=== PATIENT | female | born 1955 | race Caucasian/White ===

== ENCOUNTER 2021-12-14 10:30 | Outpatient (CLI) | payer MEDICARE, MEDICAID, SELFPAY ==
--- NOTE | ~2021-12-14 | XR_ITS ---
XR thoracic spine 2V DATE: 12/14/2021 11:08 INDICATION: Back pain TECHNIQUE: AP, lateral, swimmer views COMPARISON: None FINDINGS: Degenerative change of the cervical spinal including severe degenerative disc disease and u ncovertebral joint spurring at C5-6 and C6-7. Osteopenia. Chronic moderately prominent anterior wedge compression fracture deformity of T12. There is mild degenerative spurring of the thoracic spine. No recent fracture or dislocation or bone destruction. The thoracic pedicles are intact. No paraspina l soft tissue thickening. IMPRESSION: Chronic moderate anterior wedge compression fracture deformity of T12 Mild degenerative spurring of the thoracic spine Prominent cervical spondylosis Reviewed, dictated and finalized at location B. IMPRESSION: Chronic moderate anterior wedge compression fracture deformity of T 12 Mild degenerative spurring of the thoracic spine Prominent cervical spondylosis
--- NOTE | ~2021-12-14 | XR_ITS ---
XR lumbar spine 2-3V DATE: 12/14/2021 11:08 INDICATION: Low back pain TECHNIQUE: AP, lateral, coned lateral lumbosacral views COMPARISON: None FINDINGS: Osteopenia. Minimal levoscoliosis of the lumbar spine. Moderately prominent anterior wedge compression fracture T12 and L2. There is degenerative spurring at the lumbar interspaces. There is moderate loss of interspace height at L3-4 interspace height is relatively preserved elsewhere in the lumbar and lumbosacral area. No spondylolisthesis. No bone destruction is evident. The included lower thoracic and lumbar pedicles are intact. The sacroiliac joints are normally aligned. Surgical clips and bowel sutures overlie the abdomen. IMPRESSION: Osteopenia Minimal levoscoliosis Multilevel degenerative Moderately prominent anterior wedge compression fracture deformity of T12 and L2 disc disease, greate st at L3-4 Reviewed, dictated and finalized at location B. IMPRESSION: Osteopenia Minimal levoscoliosis Multilevel degenerative Moderately prominent anterior wedge compression fracture deformity of T12 and L 2 disc disease, greatest at L3-4
== END 2021-12-14 10:31 | disposition home or self-care (01) ==
PROVIDERS: PCP Family Medicine; Visit Provider Neurological Surgery
DX: S32.000A Wedge compression fracture of unspecified lumbar vertebra, initial encounter for closed fracture (principal); X58.XXXA Exposure to other specified factors, initial encounter; M85.88 Other specified disorders of bone density and structure, other site; M51.36 Other intervertebral disc degeneration, lumbar region; M47.892 Other spondylosis, cervical region
CPT/HCPCS: 72070; 72100

== ENCOUNTER 2022-02-08 07:07 | Outpatient (CLI) | payer MEDICARE, MEDICAID, SELFPAY ==
--- NOTE | ~2022-02-08 | XR_ITS ---
XR thoracic spine 2V DATE: 02/08/2022 07:44 INDICATION: Wedge compression fractures TECHNIQUE: AP, lateral, swimmer views COMPARISON: 12/14/2021 thoracic spine FINDINGS: Stable moderate anterior wedge compression fracture deformity of T12 since 12/14/2021. No in terval fracture or any bone destruction is evident. The thoracic pedicles are intact. Prominent degenerative changes of the included lower cervical spine. Mild degenerative spurring of th e thoracic spine. Osteopenia. IMPRESSION: Chronic T12 fracture Osteopenia Prominent cysts degenerative changes of the lower cervical spine, mild degenerative spurring of thora cic spine Reviewed, dictated and finalized at location B. ENT MANAGEMENT SPECIALIST IMPRESSION: Chronic T12 fracture Osteopenia Prominent cysts degenerative changes of the lower cervical spine, mild degenera tive spurring of thoracic spine
--- NOTE | ~2022-02-08 | XR_ITS ---
EXAMINATION: XR lumbar spine 2-3V DATE: 02/08/2022 07:44 INDICATION: Low back pain, unspecified. TECHNIQUE: 2 views of lumbar spine were obtained. COMPARISON: Lumbar spine radiographs 01/13/2022 FINDINGS: There is 11 degrees levoscoliosis of lumbar spine. There are chronic compression fractures of T12 and L1. There is a chronic burst fracture of L2 with 2/5 loss of height and retropulsion of cyndee ne 4 mm into central spinal canal. There is moderately decreased disc height at L3-L4 and mildly decr eased disc height at L4-L5 and L5-S1. There is multilevel facet joint osteoarthritis, severe in lower lumbar spine. There are surgical changes in the bowel. IMPRESSION: 1. Moderate lumbar spondylosis. 2. Lumbar levoscoliosis. Reviewed, dictated and finalized at location A. MOBILE MECHANIC RADIATOR
== END 2022-02-08 07:08 | disposition home or self-care (01) ==
PROVIDERS: PCP Family Medicine; Visit Provider Neurological Surgery
DX: M47.896 Other spondylosis, lumbar region (principal); M85.88 Other specified disorders of bone density and structure, other site; S22.089D Unspecified fracture of T11-T12 vertebra, subsequent encounter for fracture with routine healing; X58.XXXD Exposure to other specified factors, subsequent encounter
CPT/HCPCS: 72070; 72100

== ENCOUNTER 2022-03-29 07:31 | Outpatient (CLI) | payer MEDICARE, MEDICAID, SELFPAY ==
--- NOTE | ~2022-03-29 | XR_ITS ---
Thoracic spine: Clinical Indication: T12 fracture COMPARISON: 02/08/2022 AP and lateral views were performed. Moderate compression fracture of T12 is unchanged from prior exam. Probable mild to moderate compress ion fracture of L1, also likely unchanged. There is otherwise normal alignment of the vertebrae. The intervertebral disc spaces appear normal. Paravertebral soft tissues appear normal. Impression: Stable compression fractures of T12 and probably L1. Reviewed, dictated and finalized at location M. ING MACHINE COLLECTOR Impression: Stable compression fractures of T12 and probably L1.
--- NOTE | ~2022-03-29 | XR_ITS ---
Lumbosacral Spine: AP and lateral views Clinical History: Pain COMPARISON: 02/08/2022 Findings: Stable mild levoscoliosis noted. Stable compression fractures of T12 and L2 are present. St able probable minimal compression fracture of L1. Mild facet joint degenerative changes are present i n the lower lumbar spine. The intervertebral disc spaces are preserved. The sacroiliac joints are no rmally outlined. Impression: Stable compression fracture deformities of T12, L1, and L2. Reviewed, dictated and finalized at location M. CITY MANAGEMENT SPECIALIST Impression: Stable compression fracture deformities of T12, L1, and L2.
== END 2022-03-29 07:32 | disposition home or self-care (01) ==
PROVIDERS: PCP Family Medicine; Visit Provider Neurological Surgery
DX: S22.080D Wedge compression fracture of T11-T12 vertebra, subsequent encounter for fracture with routine healing (principal); X58.XXXD Exposure to other specified factors, subsequent encounter
CPT/HCPCS: 72070; 72100

== ENCOUNTER 2023-03-13 09:30 | Outpatient (RCR) | payer MEDICARE, MEDICAID, SELFPAY ==
--- NOTE | 2023-01-17 17:27 | PTOPEVAL1 ---
Assessment and note entered by Mirna Khanna, PT Evaluation Information Assessment Status Evaluation Diagnosis (R) hip instability, (L) hip instability, Weakness Therapy conditions other deficits in gait and mobility Onset ~1 year Subjective Information Has fallen 5 times this year but hasn't fallen in a few months. [place]ses the [place] at the [facility] to walk for fitness without chance of falling. Does have some back pain since her fractures. Doesn't keep her from doing things, will bother once in a while with doing a lot of work. Will only have pain in left hip when walks the [employer] for an hour Assessment PT Clinical Summary Pt presents with L/R hip instability and weakness, complains of increased fall frequency this past year. Pt evaluation shows significant postural deficits, BLE weakness, gait abnormality, balance and coordination deficits. Pt will greatly benefit from physical therapy to address deficits and improve safety with independent mobility and function. Plan of Care Interventions Gait Training,Neuro Re-education,Patient/Caregiver Educati,Therapeutic Activities,Therapeutic Exercise,Self-Care/Home Management PT Services Indicated Yes Treatment Frequency and 1-2 x weekly x 8 weeks Duration These treatments will address the objective and functional deficits as defined above. The patient will be advanced safely and appropriately in order for the patient to progress towards his/her prior level of function. Additional exercises will be introduced and as well as a comprehensive home exercise program upon discharge, if needed, ?to ensure carryover of functional gains achieved in the clinic. This treatment plan has been reviewed and agreement upon by the patient.
--- NOTE | 2023-03-11 08:33 | PCPTNOTE ---
Therapy department called patient 03/08/23 and cancelled scheduled appointment this date due to staffing shortage.
--- NOTE | 2023-03-13 10:22 | PTOPDC ---
Assessment and note entered by Mirna Khanna, PT Assessment Status Discharge Diagnosis (R) hip instability, (L) hip instability, Weakness Onset ~1 year Subjective Information Feels that balance and walking is better. States her sister thinks she has improved some. Reported Pain Level Pain Score 0: Self Report Assessment PT Clinical Summary Pt has attended therapy consistently for weakness, balance, mobility and gait deficits. Her balance and dynamic gait scores have greatly increased showing patient is at low risk for falls currently . Her strength in her LEs has also increased in multiple aspects. Pt has met majority of her therapy goals, understands her home program, and was educated when to return to therapy. Thus patient is being discharged from therapy for completion of plan.
== END 2023-03-13 10:38 | disposition home or self-care (01) ==
LOC: ANHHIPT 09:30
PROVIDERS: PCP Family Medicine; Visit Provider Family Medicine
DX: M25.351 Other instability, right hip (principal); M25.352 Other instability, left hip; R53.1 Weakness
CPT/HCPCS: 97110; 97112; 97116; 97162; 97750

== ENCOUNTER 2024-04-23 08:45 | Outpatient (RCR) | payer MEDICARE, MEDICAID, SELFPAY ==
--- NOTE | 2024-01-27 11:56 | PTOPEVAL1 ---
Assessment and note entered by Mirna Khanna, PT Evaluation Information Assessment Status Evaluation Diagnosis unsteadiness on feet, repeated falls, low back pain, abnormal posture ICD-10 Condition Codes (PT) Repeated falls R29.6,Difficulty Walking R26.2,R26. 9,Weakness R53.1 Onset chronic Subjective Information Has fallen a few times since was last in therapy. States she fell when she was walking outside to her mailbox and hit her face. she has a new rollator walker. Sitting to long or standing to loon back will bother her. Reports can stand up to 30-45 minutes. Sometimes can stand a little longer. Can't really cook meals because of her back. Pt's sister states pt's Alzheimers is effecting her sense of time. States patient can only stand for 10 minutes. Sister states she talks to patient multiple times a day and that patient can't stand longer than 10 min. Reports they had been wearing her back brace for 2 weeks, and just this weekend took it off. Sister reports is a full brace that is hard plastic goes up to the shoulders and has straps on sides to tighten it. Reports is thinks is hard on the sides as well. Pt does want the helper to observe therapy sessions to be able to reinforce therapy habits when is outside of therapy due to poor carry over. Neuro Surgeon stated pt is not allowed to bend more than necessary, or lift more than a gallon of milk. Reported Pain Level Pain Score 0: Self Report Assessment PT Clinical Summary Pt presents with history of falls, low back pain, abnormal posture. She has multiple co-morbidities and difficulty with attention and focusing at times, difficulty with multitasking, coordination, and problem solving effecting her balance with ambulation. She also shows abnormal sitting and standing postures, weakness in the postural and lumbopelvic core musculature, and decreased stability overall. Pt will greatly benefit from therapy to address these deficits, educate and reinforce safety and use of rollator, provide caregiver with education and resources to help reinforce therapy instruction and goals, to maximize functional safety for patient in and out of home. Plan of Care Interventions Gait Training,Hot Pack/Cold Pack,Manual Therapy, Neuro Re-education,Patient/Caregiver Educati, Therapeutic Activities,Therapeutic Exercise,Self- Care/Home Management,Other Other Interventions Bracing PT Services Indicated Yes Treatment Frequency and 1-2x weekly x 20 visits Duration These treatments will address the objective and functional deficits as defined above. The patient will be advanced safely and appropriately in order for the patient to progress towards his/her prior level of function. Additional exercises will be introduced and as well as a comprehensive home exercise program upon discharge, if needed, ?to ensure carryover of functional gains achieved in the clinic. This treatment plan has been reviewed and agreement upon by the patient.
--- NOTE | 2024-01-27 11:56 | OPREHPOC ---
Outpatient Therapy Plan of Care This is a Multidisciplinary Plan of Care that may contain components documented by all disciplines (PT, OT, and ST.) PT Goal 1 Goal / Goal Update Pt will able to participate in HEP with stand by assist Target Visit 10 PT Problem 2 PT Problem #2 Pain PT Goal 1 Goal / Goal Update Pt/POA/caregiver will report ability for patient to stand approx 20 minutes with cueing or reminders for posture, before having to sit from back pain Target Visit 10 PT Goal 2 Goal / Goal Update Pt/caregiver/POA will report ability for pt to ambulate 30 minutes with rollator prior to sitting from back pain. Target Visit 20 PT Problem 3 PT Problem #3 Impaired Balance PT Goal 1 Goal / Goal Update Pt will demo 5x sit to stand test of 15 seconds without LOB or use of UEs Target Visit 10 PT Goal 2 Goal / Goal Update Pt will demo ability to stand with feet together on firm surface and eyes closed without LOCOMOTIVE MECHANIC x 20 seconds Target Visit 2
--- NOTE | 2024-03-05 17:44 | PTOPPROG ---
Assessment and note entered by Mirna Khanna, PT Evaluation Information Assessment Status Progress Diagnosis unsteadiness on feet, repeated falls, low back pain, abnormal posture ICD-10 Condition Codes (PT) Repeated falls R29.6,Difficulty Walking R26.2, Abnormalities of gait and mobility R26.9,Weakness R53.1 Onset chronic Subjective Information Pt states her toes are really hurting this morning , with the arthritis. States she is doing ok since last session, that she didn't fall any. Pt states she thinks she is getting steadier on her feet. Pt states back isn't doing too bad . Reports was a little sore later after therapy. Pt states so far she thinks she is doing better with her sitting posture, sits on the other side of the couch and does laying down stretches for her back that her niece who is a therapist gave her. Caregiver states hasn't heard pt complain about having pain with standing as much as before. Reports patient may stand 15 minutes for her phone conversations with her sister Assessment PT Clinical Summary Pt has attended therapy consistently for her balance, gait, and strengthening. Pt states she feels she is some improved. Pt's sister states she doesn't think her pain has improved. Pt does demonstrate improved strength overall, demonstrates improved 5x sit to stand time and quality, her walking is slower today but appears to be self-limiting in speed as she has been encouraged to slow down her activities and reactions previously. Pt is able to correct her postures with less cueing as well in static positions. Pt has met and partially met multiple goals though has not met all goals. Thus patient will benefit from continued therapy in order to continue progression and reach maximal functional and safe independence. Plan of Care Interventions Gait Training,Hot Pack/Cold Pack,Manual Therapy, Neuro Re-education,Patient/Caregiver Education, Therapeutic Activities,Therapeutic Exercise,Self- Care/Home Management,Other Other Interventions Bracing PT Services Indicated Yes Treatment Frequency and Cont 1-2x weekly x 10 visits Duration These treatments will address the objective and functional deficits as defined above. The patient will be advanced safely and appropriately in order for the patient to progress towards his/her prior level of function. Additional exercises will be introduced and as well as a comprehensive home exercise program upon discharge, if needed, ?to ensure carryover of functional gains achieved in the clinic. This treatment plan has been reviewed and agreement upon by the patient.
--- NOTE | 2024-03-31 11:28 | PCPTNOTE ---
Patient called & cancelled scheduled appointment this date due to her helper couldn't get to her because of the weather. Thus she didn't have a ride to therapy
--- NOTE | 2024-04-23 09:33 | PTOPDC ---
Assessment and note entered by Mirna Khanna, PT Evaluation Information Assessment Status Discharge Diagnosis unsteadiness on feet, repeated falls, low back pain, abnormal posture ICD-10 Condition Codes (PT) Repeated falls R29.6,Difficulty Walking R26.2, Abnormalities of gait and mobility R26.9,Weakness R53.1 Onset chronic Subjective Information Pt reports feeling some better graphic arts technician states patient is doing better about thinking about her actions, is doing better about planning her actions. Has changed some things at home to decreased fall risk Reported Pain Level Pain Score 0: Self Report Assessment PT Clinical Summary Pt has attended therapy consistently for her balance and ambulation. Her balance scores have increased, her strength has increased overall, her posture is improved especially with verbal cueing . She does very well with her rollator and has demonstrated appropriate safety and use without verbal cueing at least 75% of the time with increased processing time. She has met or partially met all goals with the exception of standing and walking time related to her back pain . Thus she is being discharged from physical therapy for completion of plan of care. Plan of Care PT Services Indicated No
== END 2024-04-23 09:49 | disposition home or self-care (01) ==
LOC: ANHHIPT 08:45
PROVIDERS: PCP Nurse Practitioner Family; Visit Provider Nurse Practitioner Family
DX: R26.81 Unsteadiness on feet (principal); R29.6 Repeated falls; M54.50 Low back pain, unspecified; R29.3 Abnormal posture
CPT/HCPCS: 97110; 97112; 97116; 97162; 97530; 97750

== ENCOUNTER 2024-08-22 08:41 | Outpatient (CLI) | payer MEDICARE, MEDICAID, SELFPAY ==
--- NOTE | ~2024-08-22 | MR_ITS ---
MRI of the brain Clinical History: Multiple sclerosis Technique: Axial and sagittal T1-weighted images were acquired. These were followed by axial T2-weigh sonia, diffusion weighted, gradient, and FLAIR images. Following intravenous administration of 13 cc Pr oHance gadolinium, T1-weighted fat-sat imaging was performed in the axial, coronal, and sagittal plan es. Findings: No acute infarct, acute intracranial hemorrhage, or mass lesion identified. There are multi ple focal areas of low signal on gradient images, probably about the atria and temporal horns lateral ventricles and the region of the cerebellar vermis. There are minimal chronic white matter changes in the periventricular white matter bilaterally. Ventr icles and subarachnoid spaces are unremarkable. Orbits are unremarkable. Paranasal sinuses and mastoi d air cells are clear. Major intracranial flow voids appear intact. Sagittal midline structures are grossly intact. No abnormal postcontrast enhancement identified. IMPRESSION: Probable chronic postoperative changes in the region of the cerebellar vermis, which correlates with reported history of prior benign brain tumor. No definite evidence for multiple sclerosis. Minimal probable chronic microvascular ischemic changes in the periventricular white matter. No definite acute abnormality seen. Reviewed, dictated and finalized at [facility]. IMPRESSION: Probable chronic postoperative changes in the region of the cerebellar vermis, which correlates with reported history of prior benign brain tumor. No definite evidence for multiple sclerosis. Minimal probable chronic microvasc ular ischemic changes in the periventricular white matter. No definite acute abnormality seen.
--- OUTSIDE RECORDS SUMMARY | 2024-08-22 08:38 | XMS_ITS | Clinical Summary ---
Author Organization [facility] Address [address] [place] [address] Care Team Providers Care Sales Representative Livestock Name Role Phone Alex Leon MD Primary Care Provider [phone] Source Comments [facility],non-owned Affiliates and Associated Physician Practices is amultiple site organization consisting of ambulatory clinics and hospital sitesin [place], [place], [place] and [place]. This disclosure is being madepursuant to the Care Everywhere program and may not contain all information available regarding this patient. Last updated 17.[facility] Allergies No known active allergies Medications * Be aware that medications may not be up to date on this document. Alwaysverify current medications with the patient. alendronate (FOSAMAX) 70 MG tablet 9 Active benztropine (COGENTIN) 1 MG tablet 0 Active [facility] CALCIUM 600 MG tablet Take 1 tablet by mouth once daily 0 Active haloperidol decanoate (HALDOL DECANOATE) 100 MG/ML injection INJECT 1ML MONTHLY 0 Active ketoconazole (NIZORAL) 2 % shampoo USE TOPICALLY 2 3X PER WEEK 0 Active NAMZARIC 28-10 MG capsule Take 1 capsule by mouth every evening 0 Active OLANZapine (ZYPREXA) 20 MG tablet Take 20 mg by mouth once daily 0 Active oxyCODONE, immediate release, (ROXICODONE) 5 MG tablet 0 Active pantoprazole EC (PROTONIX) 40 MG tablet Take 40 mg by mouth every morning 0 Active rosuvastatin (CRESTOR) 5 MG tablet Take 5 mg by mouth once daily 0 Active traZODone (DESYREL) 50 MG tablet 9 Active Cholecalciferol (CVS VITAMIN D3 PO) 2,000 Units 0 Active influenza quadrivalent vac (AFLURIA QUAD) 0.5 ML injection ADM 0.5ML IM UTD 8 Active amoxicillin (AMOXIL) 500 MG capsule TAKE 1 CAPSULE EVERY 8 HOURS UNTIL FINISHED 0 Active [facility]S D3 50 MCG (1999 UT) capsule Take 1 capsule by mouth once daily 0 Active GAVILYTE-N WITH FLAVOR PACK 420 g solution TAKE 4000 MLS BY MOUTH ONCE FOR 1 DOSE 0 Active polyethylene glycol (GOLYTELY;NULYTEL Y) 240 g solution Use as directed 0 Active polyethylene glycol (GOLYTELY) 236 g solution 4 liters to be taken by mouth as directed for bowel prep. 0 Active GAVILYTE-G 236 g solution USE DIRECTED PER DIRECTIONS 0 Active Active Problems Problem Noted Date Diagnosed Date Edema of both lower legs due to peripheral venous insufficiency 01/08/2018 Onychomycosis of toenail 01/03/2018 Encounter for preventive health examination 06/2017 Immunizations Immunization Administration Dates Next Due INFLUENZA VACCINE, HIGH-DOSE , QUADR. (FLUZONE HIGH-DOSE QUADRIVALENT; 65Y+), 0.7 ML (HD-IIV4) 11/25/2018 Zoster Hzv Vacc Recombinant Inj Im 04/08/2019, Social History Tobacco Use Types Packs/Day Years Used Date Smoking Tobacco: Never Smokeless Tobacco: Never Comments Unknown Sex and Gender Information Value Date Recorded Sex Assigned at Not on file Legal Sex Female 9:30 AM CDT Gender Identity Not on file Sexual Orientation Not on file Last Filed Vital Signs Vital Sign Reading Time Taken Comments Blood Pressure - - Pulse - - Temperature - - Respiratory Rate - - Oxygen Saturation - - Inhaled Oxygen Concentration - - Weight 66.2 kg (146 lb) 08/20/2019 11:16 AM CDT Height 160 cm (5' 3) 08/20/2019 11:16 AM CDT Body Mass Index 25.86 08/20/2019 11:16 AM CDT Plan of Treatment Health Maintenance Due Date Last Done Comments BONE DENSITY TESTING 1955 COLOGUARD (AGES 45-75) - COL ON CA SCREENING 1955 COLON MONITORING 1953 COLONOSCOPY - COLON CA SCREENING 1953 CT COLONOGRAPHY - COLON CA SCREENING 1955 Colorectal Cancer Screening 1955 FIT - COLON CA SCREENING 1953 FLEX SIG - COLON CA SCREENING 1955 MAMMOGRAM 1953 HEPATITIS C SCREENING 06/07/1971 DTAP/TDAP/TD VACCINES (1 - Tdap) 1972 PNEUMOCOCCAL VACCINE 50+ (1 of 1 - PCV) 06/12/2003 SCREENING FOR DIABETES 08/20/2019 COVID-19 VACCINE ( - 2023-2 5 season) 2023 DEPRESSION SCREENING 03/25/2024 INFLUENZA VACCINE (Season Ended) 2024 11/25/2018 Respiratory Syncytial Virus (RSV) Vaccine Pt: or over 60 yrs (1 - 1-dose 75+ series) 2028 ZOSTER VACCINE Completed 04/08/2019, 02/06/2019 HEPATITIS B VACCINE Aged Out No longe r eligible based on patient's age to complete this topic HIB VACCINE Aged Out No longer eligi ble based on patient's age to complete this topic HPV VACCINE Aged Out No longer eligi ble based on patient's age to complete this topic MENINGOCOCCAL (Group B) VACCINE SHARED DECISION-MAKING Aged Out No longer eligible based on patient's age to complete this topic MENINGOCOCCAL GROUPS A/C/Y/W VACCINE Aged Out No longer eligible b ased on patient's age to complete this topic Insurance MEDICARE MEDICAID - OUT OF STATE MEDICARE MEDICAID - [place] Care Teams Sales Representative Livestock Relationship Specialty Start Date End Date Alex Leon MD [address] [place] [address] [address] [place] [address] PCP - General 08/13/19
--- OUTSIDE RECORDS SUMMARY | 2024-08-22 08:38 | XMS_ITS | Data Portability ---
Author Organization [place] - [facility], [id number] [facility] Address [address] [place] [address] Assessment No assessment recorded. Plan of Treatment Reminders Order Date Submit Date Provider Last Modified By Organization Details Last Modified Time Details Appointments ANNUAL- EST 15 2025 11:15A M CARMEN MARTE MD Not available Not available Not available Lab None recorded. Referral None recorded. Procedures None recorded. Surgeries None recorded. Imaging MAMMO, screening , digital, bilateral [address] [place] [address] (Central Scheduling), [address] [place], [address], 07/03/2024 09:35:30 Medication Orders None recorded. Patient TargetsNo targets recorded. Patient InstructionsNo instructions recorded. Reason for Referral None Reported. Problems Name Problem SNOMED Code Status Onset Date Resolution Date Notes Provider Name and Address Organization Details Recorded Time Arthritis 7143064 Active 2024 Crystal Christopher null, [place] - [facility] 5 11:55:47 Malignant tumor of colon 867953498 Active 2024 Crystal [place] [facility] 5 11:55:54 Schizophren ia 31481767 Active 2024 Crystal [place] [facility] 5 11:56:00 Osteoporosi s 36801594 Active 2024 Crystal [place] [facility] 5 11:56:08 Paranoid disorder 206165773 Active 2024 Jessika White [place] [facility] 5 11:56:20 Alzheimer's disease 86050282 Active 2024 Jess[place] [facility] 5 11:56:26 Genital warts 997927018 Active 2024 Jess[place] [facility] 5 11:56:41 Simple paranoid state 999823120 Active Paranoia , Problem Code: 297.0; Problem Code Type: ICD-9; Not Available [facility] 5 12:22:28 History of malignant neoplasm of colon 888497334 Active Cancer, Colon, Problem Code: V10.05; Problem Code Type: ICD-9; Startdat e: '2007'; Not Available [facility] 5 12:22:28 Schizophren ia in remission 0242160 Active Schizoph cali, Problem Code: 295.95; Problem Code Type: ICD-9; Not Available [facility] 5 12:22:29 Problem Notes None recorded. Procedures Surgical History Date Name Laterality Status Provider Name and Address Organization Details Recorded Time 4 Date of Last Mammogram completed [facility] [place] [facility] 05/20/2024 11:57:40 0 Date of Last Colonoscopy completed [facility] [place] [facility] 05/20/2024 11:58:15 9 Date of Last Pap Smear completed [facility] [place] [facility] 05/20/2024 11:57:22 procedure on brain completed [facility] [place] [facility] 05/20/2024 11:54:57 endoscopic laser surgery on colon completed [facility] [place] [facility] 05/20/2024 11:55:15 colonoscopy completed [facility] [place] [facility] 05/20/2024 11:55:24 Other completed [facility] [place] [facility] 05/21/2024 13:22:40 Colonoscopy completed [facility] [place] [facility] 05/21/2024 13:22:40 Imaging Results None recorded. Procedure Notes None recorded. Medical Equipment None Reported. Allergies Allergen ID Allergen Name Allergen Category Reaction Reaction Severity Criticality Documentation Date Start Date Code Code System Note Provider Name and Address Organization Details Recorded Time Tylenol medicatio n hives Not available Not available 05/20/202494800 3 RxNorm Crystal Christopher null, [place] - [facility] 5 11:47:41 015523 acetamino phen medicatio n Not available Not available Not available 05/21/2024 161 RxNorm Crystal Christopher null[place] - [facility] 13:22:40 Medications Name Sig Start Date Stop Date Status Note LastModified by Organization Details LastModified Time amoxicillin 500 mg capsule TAKE 1 CAPSULE BY MOUTH EVERY 8 HOURS UNTIL GONE 05/20 completed Not Available Not Available Not Available doxycycline hyclate 100 mg capsule TAKE 2 CAPSULES TODAY, THEN 1 CAPSULE DAILY UNTIL FINISHED 05/20 completed Not Available Not Available Not Available ketoconazol e 2 % shampoo APPLY TO SCALP 3 TIMES PER WEEK active Not Available Not Available No t Available trazodone 50 mg tablet TAKE 1 TABLET BY MOUTH EVERYDAY AT BEDTIME active Not Available Not Available No t Available haloperidol decanoate 100 mg/mL intramuscul ar solution INJECT 1 MILLILITE R IM EVERY MONTH active Not Available Not Available No t Available alendronate 70 mg tablet PLEASE SEE ATTACHED FOR DETAILED DIRECTION S active Not Available Not Available No t Available amantadine HCl 100 mg capsule TAKE 1 CAPSULE BY MOUTH EVERY DAY ONCE DAILY IN THE EVENING active Not Available Not Available No t Available calcium 600 mg (as calcium carbonate 1,500 mg) tablet TAKE 1 TABLET BY MOUTH EVERY DAY 2024 active Not Available Not Available Not Avai lable tamsulosin 0.4 mg capsule TAKE 1 CAPSULE BY MOUTH EVERYDAY AT BEDTIME active Not Available Not Available No t Available pantoprazol e 40 mg tablet,nadia yed release TAKE 1 TABLET BY MOUTH EVERY DAY active Not Available Not Available No t Available betamethaso ne dipropionat e 0.05 % lotion APPLY TO SCALP EVERY DAY NEEDED FOR ITCHING AND RASH. active Not Available Not Available No t Available olanzapine 20 mg tablet TAKE 1 TABLET BY MOUTH EVERY DAY IN THE EVENING active Not Available Not Available No t Available rosuvastati n 5 mg tablet TAKE 1 TABLET BY MOUTH EVERY DAY active Not Available Not Available No t Available Multiple Vitamins/Wo mens active Not Available Not Available Not Available cholecalcif kate (vitamin D3) 50 mcg (2,000 unit) capsule TAKE 1 CAPSULE BY MOUTH EVERY DAY 05/20 completed Not Available Not Available Not Available Vitamin D3 50 mcg (2,000 unit) tablet TAKE 1 TABLET BY MOUTH EVERY DAY active Not Available Not Available No t Available memantine ER 28 mg-donepezi l 10 mg capsule sprinkle,ex t.release 24 hr TAKE 1 CAPSULE BY MOUTH EVERY DAY IN THE EVENING 05/20 completed Not Available Not Available Not Available Namzaric 21 mg-10 mg capsule sprinkle,ex tended release Take 1 capsule every day by oral route. active Not Available Not Available No t Available Vitals Date Recorded Body height Body mass index (BMI) Body weight Systolic blood pressure Diastolic blood pressure Provider Name and Address Organization Details Last Updated DateTime 05/21/2024 157.48 cm 26.7 kg/m2 87243.49 g 138 mm[Hg] 90 mm[Hg] Jessika White [facility] 13:21:01 Social History Question Answer Notes LastModified by [employer] Details LastModified Time Tobacco Smoking Status Never Smoker Jessika White [facility] 05/20/2024 11:53:44 Do You Have An Advance Directive? Yes [email or web address] Information not available 05/21/2024 If You Are , What Was Your Level Of Alcohol Consumption Prior To ? None [email or web address] Information not available 05/21/2024 What Is Your Level Of Caffeine Consumption? Occasional [email or web address] Information not available 05/21/2024 What Type Of Diet Are You Following? REGULAR [email or web address] Information not available 05/21/2024 What Is Your Relationship Status? Single [email or web address] Information not available 05/20/2024 Sex: Unknown Functional Status Question Answer Note LastModified by Organizat ion Details LastModified Time Do you use any illicit or recreational drugs? No [email or web address] Information not available 05/20/2024 What is your level of alcohol consumption? None [email or web address] Information not available 05/20/2024 Are you currently employed? No disabled [email or web address] Information not available 05/20/2024 What is your occupation? Note: disabled Information not available 07/23/2024 What is your exercise level? Heavy Information not available 07/23/2024 Mental Status None recorded. Family History Relationship Description Onset Age of this Age Resolved Age Notes LastModified by Organization Details LastModified Time Father Chronic obstructive pulmonary disease [email or web address] Not available 05/21 13:22:40 Father Hypertensive disorder [email or web address] Not available 05/21 13:22:40 Father Disorder of lung [email or web address] Not available 05/21 13:22:40 Father Myocardial infarction [email or web address] Not available 04/26 13:22:40 Father Heart disease [email or web address] Not available 05/21 13:22:40 Father Mental disorder [email or web address] Not available 05/21 13:22:40 Father Kidney disease [email or web address] Not available 05/21 13:22:40 Brother Diabetes mellitus [email or web address] Not available 05/21 13:22:40 Sister Diabetes mellitus Not available 05/21 13:22:40 Sister Hypertensive disorder [email or web address] Not available 05/21 13:22:40 Mother Heart disease CHF [email or web address] Not available 05/21 13:22:40 Mother Chronic obstructive pulmonary disease from COPD in 2012 [email or web address] Not available 05/21/2024 13:22:40 Mother Disorder of lung [email or web address] Not available 05/21 13:22:40 Paternal Grandmother Mental disorder Not available 05/21 13:22:40 Unspecified Relation Osteoporosis [email or web address] Not available 0 05/21/2024 13:22:40 Mother History taken NOS Other mo of COPD 2012 Not available 07/23/2024 13:52:31 Unspecified Relation Family history taken Family Medica l Histor y Review ed Not available 07/23/2024 13:52:31 Sister Hypertensive disorder High Blood Pressu re Not available 07/23/2024 13:52:31 Sister Diabetes mellitus Diabet es [email or web address] Not available 07/23/2024 13:52:32 Brother Diabetes mellitus Diabet es Not available 07/23/2024 13:52:32 Medical History Condition Response Cancer- Colon Y GI-Other Y Cancer- Genetic screening Dermatology-Other Y GI- Colon Polyps Y Ortho-Other Psych-Other Y ID-Other Y Neurology- Dementia Ortho-Fractures Y Reviewed with no changes Y Rheumatology- Arthritis Y Gynecological History Statement/Question Response History of PCOS N History of Fibroids N Date of Last Mammogram 07/02/2023 History of Infertility N History of Vulvar Dysplasia N History of Cervical Dysplasia N Duration of Flow (days) 0 Age at Menarche 10 History of Recurrent Ovarian Cysts N If Post Menopausal, Age at Menopause 1 History of Endometriosis N Post Menopausal Hormone Therapy User Nev er Date of Last Colonoscopy 03/25/2019 Frequency of Cycle (Q days) 0 Sexually Active? N History of Dysmenorrhea N Menses Monthly N Date of Last Pap Smear 12/03/2018 History of Sexually Transmitted Infectio n N Date of Last Cholesterol Screening 03/25 Date of Last Bone Density 01/05/2022 Obstetrics History GPAL:G 0 P 0 0 0 0 Type Value Multiple Births 0 Full Term 0 Induced 0 Spontaneous 0 Premature 0 Living 0 Ectopics 0 Total 0 Past Encounters Encounter ID Performer Location Encounter Start Date Encounter Closed Date Diagnosis/Indication Diagnosis SNOMED-CT Code Diagnosis ICD10 Code Diagnosis Note [id number] CARMEN VAZQUEZ RD, MD [id number] [facility] [address] [facility] [address] 05/21/2024 12:31:22 05/21/2024 13:38:33 Screening mammography 77314678 Z12.31 Gynecologi c examination 33973208 Z01.419 Osteoporosis 33540630 M8 1.0 will check next DEXA. encourage to continue to walk Alzheimer's disease 6108 9004 G30.9 Malignant tumor of colon 710278292 C18.9 Health Concerns Section Related Observation LastModified by Organization Detai ls LastModified Time None Recorded Concern Status LastModified by Organization Details LastModified Time None Recorded Advance Directives Directive Y: Payers Insurance Date Sequence Insurance Name Policy Number Policy Ferreira Covered Member ID Ferreira Member ID Guarantor Name 05/20/2024 1 [place] Katelynn Donaldson [id number] Katelynn Donaldson 05/20/2024 2 MED[place]ID[place]: [facility] Katelynn Donaldson [id number] Katelynn Donaldson 05/28/2024 2 [facility] (MEDICAID REPLACEMENT - HMO) Katelynn Donaldson [id number] Katelynn Donaldson Notes Date Note Type Note Provider Name and Address Organization Details Recorded Time 05/21/2024 text/html Annual BRA[employer]ER REPAIR [employer] SALVAGE - McwhcReported bypatient.History:no gynecologic complaints; no change in interval history Urinary symptoms:No hematuria; No incontinence Vulvar complaints:None Vaginal complaints:none Breast:No breast pain; No breast lump; No nipple discharge Sexual complaints:No sexual complaints; Normal libido Menopausal Symptoms:No menopausal symptoms Psychological symptoms:No depression Preventive measures:Encourage self breast examination; Encourage regular exercise; Encourage no tobacco use; Encourage regular mammograms starting age 40; Up to date on colonoscopy screeningNotes:Discu ssed diet and exercise.Has manager long term care now Patient states she is not having any problems or concerns. System Safety Engineer offered per [facility] policy. System Safety Engineer was DECLINED. Patient is here for annual exam. No complaints. No postmenopausal bleeding CARMEN PHAM MD [address], [place], [address], [facility] 05/21/2024 13:35:13 OBGyn Episode No OBEpisode recorded.
[2024-08-22 09:32] LABS: Hemoglobin A1C 5.1 % (<5.7)
[2024-08-22 10:39] LABS: Folic Acid > 20.0 ng/mL (2.76->20)
[2024-08-24 15:44] LABS: Homocysteine. 11.7 umol/L (< or = 13.4)
[2024-08-24 21:34] LABS: Immunofixation, Serum. Normal pattern.
[2024-08-25 06:14] LABS: Methylmalonic Acid. 158 nmol/L (69-390)
[2024-08-26 10:04] LABS: Vitamin B1. 44 nmol/L (8-30)
[2024-08-26 11:08] LABS: Vitamin B6. 57.4 ng/mL (2.1-21.7)
== END 2024-08-22 08:42 | disposition home or self-care (01) ==
PROVIDERS: PCP Nurse Practitioner Family; Visit Provider Psychiatry & Neurology Neurology
DX: Z13.1 Encounter for screening for diabetes mellitus (principal); G35 Multiple sclerosis; R27.0 Ataxia, unspecified; R29.6 Repeated falls
CPT/HCPCS: 36415; 70553; 82607; 82746; 83036; 83090; 83921; 84207; 84425; 86334; A9579

== ENCOUNTER 2024-10-29 09:49 | Outpatient (CLI) | payer MEDICARE, MEDICAID, SELFPAY ==
--- OUTSIDE RECORDS SUMMARY | 2024-10-29 09:57 | XMS_ITS | Encounter Summary ---
Author Organization [facility] Address [facility] [place] [address] Care Team Providers Care Die Finisher Name Role Phone Alex Leon MD Primary Care Provider Unava Radha Suh DO Primary Care Provider [phone] Zac Salcido MD Primary Care Provider [phone] Aleksandra Forbes [facility] Primary Care Provider + Encounter Details Date Type Department Care Team (Late st Contact Info) Description 10/15/2019 Prep for Procedure [facility] [address] [place], [place] [id number] Chip Busby MD [address] [place] [address] [id number] Social History Tobacco Use Types Packs/Day Years Used Date Smoking Tobacco: Never Smokeless Tobacco: Never Alcohol Use Standard Drinks/Week Comments No 0 (1 standard drink = 0.6 oz pur e alcohol) AUDIT-C Answer Date Recorded Frequency of Alcohol Consumption Never 04/18/2018 Average Number of Drinks Not on file 019 Frequency of Binge Drinking Not on file 03/26 Comments No Sex and Gender Information Value Date Recorded Sex Assigned at Female 04/18/2018 8:41 AM SURGICAL ASST Legal Sex Female 8:02 PM CDT Gender Identity Female 04/18/2018 8:41 AM SURGICAL ASST Sexual Orientation Straight 04/18/2018 8: 41 AM SURGICAL ASST COVID-19 Exposure Response Date Recorded In the last month, have you been in contact with someone who was confirmed or suspected to have Coronavirus / COVID-19? No / Unsure 10/18/2019 9:37 AM CDT documented as of this encounter Plan of Treatment Not on file documented as of this encounter Results * PRE-SURGICAL/PRE-PROCEDURE CORONAVIRUS (COVID 19) (10/18/2019 9:37 AM CDT) CORONAVIRUS SARS COV 2 PCR (RESP) NOT DETECTED NOT DETECTED 10/19/2019 7:[address] [facility] Comment: A Not Detected (negative) test result for this test means that SARS- CoV-2 RNA was not present in the specimen above the limit of detection. A negative result does not rule out the possibility of COVID-19 and should not be used as the sole basis for treatment or patient management decisions. If COVID-19 is still suspected, based on exposure history together with other clinical findings, re-testing should be considered in consultation with public health authorities. Laboratory test results should always be considered in the context of clinical observations and epidemiological data in making a final diagnosis and patient management decisions. Please review the Fact Sheets and FDA authorized labeling available for health care providers and patients using the following websites: https://www.[facility].Imprivata/home/Covid-19/HCP/NAAT/fact-sheet2 https://www.[employer].Imprivata/home/Covid-19/Patients/NAAT/ fact-sheet2 This test has been authorized by the FDA under an Emergency Use Authorization (EUA) for use by authorized laboratories. Due to the current public health emergency, [facility] is receiving a high volume of samples from a wide variety of swabs and media for COVID-19 testing. In order to serve patients during this public health crisis, samples from appropriate clinical sources are being tested. Negative test results derived from specimens received in non-commercially manufactured viral collection and transport media, or in media and sample collection kits not yet authorized by FDA for COVID-19 testing should be cautiously evaluated and the patient potentially subjected to extra precautions such as additional clinical monitoring, including collection of an additional specimen. Methodology: Nucleic Acid Amplification Test (NAAT) includes PCR or TMA Additional information about COVID-19 can be found at the [facility] website: www.[facility]on.Imprivata/Covid19. Test performed at [facility] [address] [address] Director: DIANA BRICE DO,MPH NASOPHARYNGEAL SWAB / Unknown 10/18/2019 9:37 AM CDT us Chip Busby MD MICROBIOLOGY - GENERAL ORDERABLE S Final Result [facility] [address] [place] [address], documented in this encounter Visit Diagnoses Diagnosis Preop testing- Primary Preoperative examination, unspecified documented in this encounter Additional Health Concerns Infection Onset Date Last Indicated Resolved Time COVID-19 Rule Out 10/18/2019 10/18/2019 10/19/2019 7:19 PM CDT documented as of this encounter Care Teams Die Finisher Relationship Specialty Start Date End Date Alex Leon MD PCP - General INTERNAL MEDICINE 01/07/18 04/04/21 Radha Leonard DO PCP - General FAMILY PRACTICE 04/05/21 08/09/22 Zac Salcido MD [address] [place] [id number] PCP - General FAMILY PRACTICE 08/10/22 01/07/24 Aleksandra Forbes, DIE CAST SUPERVISOR- [address] [place] [id number] PCP - General Nurse Practitioner Family 01/08/24 documented as of this encounter
--- OUTSIDE RECORDS SUMMARY | 2024-10-29 09:57 | XMS_ITS | Clinical Summary ---
Author Organization [facility] [employer] Address [address] [place] [address] Care Team Providers Care Care Tech Name Role Phone Alex Leon MD Primary Care Provider [phone] Source Comments [facility],non-owned Affiliates and Associated Physician Practices is amultiple site organization consisting of ambulatory clinics and hospital sitesin [place], [place], [place] and [place]. This disclosure is being madepursuant to the Care Everywhere program and may not contain all information available regarding this patient. Last updated 17.[facility] [employer] [facility] Allergies No known active allergies Medications * [...] season) 2023 DEPRESSION SCREENING 03/25/2024 INFLUENZA VACCINE (#1) 2024 11/25/2018 Respiratory Syncytial Virus (RSV) Vaccine [...] STATE MEDICARE MEDICAID - [place] Care Teams Care Tech Relationship Specialty Start Date End Date Alex Leon MD [address] [place] [address] [address] [place] [address] PCP - General 08/13/19
--- OUTSIDE RECORDS SUMMARY | 2024-10-29 09:57 | XMS_ITS | Clinical Summary ---
Author Organization [facility] Address [address] [place] [address] Care Team Providers Care Educational Therapist Name Role Phone Mellisa Polo [facility] Primary Care Provider + Allergies Active Allergy Reactions Criticality Noted Date Comments Acetaminophen Other (see comment) 10/15/2019 Unable to take because of medications for schizoprania Medications haloperidol decanoate 100 MG/ML injection 8 Active ketoconazole 2 % shampoo 8 Active Memantine HCl-Donepezil HCl 28-10 MG CAPSULE SR 24 HR Take 1 tablet by mouth daily. 8 Active OLANZapine 20 MG tablet Take 1 tablet (20 mg total) by mouth nightly at bedtime. 8 Active pantoprazole 40 MG tablet Take 1 tablet (40 mg total) by mouth daily. 8 Active rosuvastatin 5 MG tablet Take 1 tablet (5 mg total) by mouth nightly at bedtime. 8 Active Cholecalciferol 50 MCG (1999 UT) Cap Take 1 capsule by mouth daily. 0 Active traZODone 50 MG tablet Take 1 tablet (50 mg total) by mouth nightly at bedtime. Active betamethasone dipropionate 0.05 % lotion Apply topically 2 (two) times daily. Active [employer] CALCIUM 600 MG tablet Take 1 tablet (600 mg total) by mouth daily. 2 Active multi vitamin/minerals (THERA-M ENHANCED) tablet Take 1 tablet by mouth daily. Active tamsulosin (FLOMAX) 0.4 MG Cap Take 1 capsule (0.4 mg total) by mouth daily. Active amantadine (SYMMETREL) 100 MG tablet Take 1 tablet (100 mg total) by mouth nightly. Active alendronate (FOSAMAX) 70 MG tablet Take 1 tablet (70 mg total) by mouth every 7 days. Active Active Problems Problem Noted Date Diagnosed Date History of colon cancer 08/13/2022 Overview (08/13/2022): Added automatically from request for surgery [id number] Imbalance 12/25/2021 Edema of both lower legs due to peripheral venous insufficiency 01/08/2018 Onychomycosis of toenail 01/03/2018 Resolved Problems Problem Noted Date Diagnosed Date Resolved Date Encounter for preventive health examination 12/26/2017 12/04/2019 Encounters Date Type Department Care Team Description 07/31/2024 10:36 AM CDT - 07/31/2024 11:59 PM CDT Hospital Encounter [facility] Mammography [address] [place] [address] Mellisa Polo, [facility]- Discharge Disposition: Home or Self Care (Routine Discharge) 07/31/2024 Travel from Last 3 Months Immunizations Immunization Administration Dates Next Due MODERNA COVID-19 (12+) MRNA, LNP-S, PF, 100 MCG/ 0.5 ML DOSE 07/12/2020,06/14/2020 Tdap (Adacel) 09/24/2020 Family History Medical History Relation Comments Breast Cancer Neg Hx Social History Tobacco Use Types Packs/Day Years Used Date Smoking Tobacco: Never Smokeless Tobacco: Never Tobacco Cessation:Counseling Given: No Alcohol Use Standard Drinks/Week Comments No 0 (1 standard drink = 0.6 oz pur e alcohol) AUDIT-C Answer Date Recorded Frequency of Alcohol Consumption Never 04/18/2018 Average Number of Drinks Not on file 019 Frequency of Binge Drinking Not on file 03/26 PHQ-2 Answer Date Recorded Patient Health Questionnaire-2 Score 0 08/10/2022 Comments No Sex and Gender Information Value Date Recorded Sex Assigned at Female 04/18/2018 8:41 AM DIAMOND SIZER AND GRADER Legal Sex Female 8:02 PM CDT Gender Identity Female 04/18/2018 8:41 AM DIAMOND SIZER AND GRADER Sexual Orientation Straight 04/18/2018 8: 41 AM DIAMOND SIZER AND GRADER Last Filed Vital Signs Vital Sign Reading Time Taken Comments Blood Pressure 122/57 12/05/2022 9:15 AM CDT Pulse 61 12/05/2022 9:15 AM CDT Temperature 36 C (96.8 F) 12/05/2022 7:05 AM CDT Respiratory Rate 18 12/05/2022 9:15 AM CDT Oxygen Saturation 100% 12/05/2022 9:15 AM CDT Inhaled Oxygen Concentration - - Weight 63 kg (138 lb 14.2 oz) 12/05/2022 7:29 AM CDT Height 160 cm (5' 3) 08/10/2022 2:10 PM CDT Body Mass Index 24.6 08/10/2022 2:10 PM CDT Plan of Treatment Health Maintenance Due Date Last Done Comments Hepatitis C 06/12/1973 Annual Medicare Wellness Visit 2018 COVID-19 Vaccine (3 - season) 2023 07/12/2020, 06/14/2020 PHQ-2 (Physician [place]) 03/25/2024 Pneumococcal Vaccine: 50+ Years (3 of 3 - PCV20 or PCV21) 08/09/2025 08/09/2020, 08/02/2020, 01/26/2016, Additional history exists Mammogram Screening 07/31/2026 07/31/2024, 07/02/2023, 04/17/2022, Additional history exists RSV Immunization or 60+ Years (1 - 1-dose 75+ series) 2028 DTaP, Tdap and Td Vaccines (3 - Td or Tdap) 09/24/2030 09/24/2020, 01/26/2016 Colorectal Cancer Screening Colonoscopy (10 Years) 12/05/2032 12/05/2022, 10/21/2019 Zoster Vaccines Completed 04/08/2019, 01/23, 12/27/2015, Additional history exists Dexa Scan (General) Completed 01/08/2024, 01/05/2022, 12/17/2018 Meningococcal B Vaccine Aged Out No l onger eligible based on patient's age to complete this topic Meningococcal Vaccine Aged Out No fanny gaston eligible based on patient's age to complete this topic RSV Immunizations Under 20 Months Aged Out No longer eligible based on patient's age to complete this topic Procedures Procedure Name Priority Date/Time Associated Diagnosis Comments MG SCREENING W ASHLYN ROSA DIGI Routine 07/31/2024 12:14 PM CDT Encounter for screening mammogram for malignant neoplasm of breast BONE DENSITY/DEXA Routine 01/08/2024 8:0 0 AM CDT Post-menopausal from Last 3 Months or Most Recently Relevant to Health Maintenance Results * MG SCREENING W ASHLYN ROSA DIGI (07/31/2024 12:14 PM CDT) Anatomical Region Laterality Modality Breast Bilateral Mammography 07/31/2024 12:3 5 PM CDT Impressions 07/31/2024 12:40 PM CDT ===== IMPRESSION: ===== 1. Stable mammographic appearance with no new findings to suggest malignancy in either breast. Assessment: ACR BI-RADS 2 - BENIGN FINDING(S) Recommendation: 1:Routine Screening Bilateral Comments: Ordered By: MELLISA POLO Interpreted By: Madina Bourne, 07/31/2024 12:35 PM Narrative 07/31/2024 12:40 PM CDT [address] [address] EXAMINATION: Digital bilateral screening mammogram with 3-D tomosynthesis EXAM DATE/TIME: 07/31/2024 10:38 AM REASON FOR EXAM: annual COMPARISON: 04/17/2022. 07/02/2023 Technique: Digital screening mammography of both breasts was performed in addition to 3-D Tomosynthesis technique. This study was read with the assistance of a computer-aided detection system. Tissue density: There are scattered areas of fibroglandular density. Findings: There is no new focal asymmetry, dominant mass lesion, area of skin thickening, or cluster of suspicious appearing calcifications in either breast to suggest malignancy. us Mellisa Cheney [place] SEPARATIONS SCIENTIST-BC MAMMO Final Re sult * BONE DENSITY/DEXA (01/08/2024 8:00 AM CDT) Anatomical Region Laterality Modality Bone Bone Density 01/09/2024 3:58 AM CDT Impressions 01/09/2024 3:58 AM CDT IMPRESSION: WHO Classification: Osteopenia RECOMMENDATIONS: All patients should ensure an adequate intake of dietary calcium and vitamin D. The NOF recommend adults under the age of 50 need 1000 mg of calcium and 400-800 IU of vitamin D daily. Effective therapy for the prevention and treatment of osteoporosis include bisphosphonates. Follow-up: People with diagnosed cases of osteoporosis or at high risk for fracture should have regular bone mineral density test. For patients eligible for Medicare, routine testing is allowed once every 2 years. Testing frequency can be increased to one year for patients who have rapidly progressing disease, those who are receiving or discontinuing medical therapy to restore bone mass, or have additional risk factors. Referred By: JYOTSNA PHAM Interpreted By: Jose Alejandro Ramires MD, 01/09/2024 3:58 AM Narrative 01/09/2024 3:58 AM CDT [facility] [address] [place] [address] EXAMINATION: BONE DENSITY/DEXA INDICATIONS: Postmenopausal TECHNIQUE: DEXA bone mineral density evaluation was performed in the AP projection over the lumbar spine and both hips utilizing standard imaging techniques. ASSESSMENT: The BMD measured at the AP spine L1-L4 is 0.908 g/cm? with a T-score of -1.3. The BMD measured at the left femoral neck is 0.639 g/cm? with a T-score of -1.9. The BMD measured at the left hip is 0.736 g/cm? with a T-score of -1.7. The BMD measured at the right femoral neck is 0.671 g/cm? with a T-score of - 1.6. The BMD measured at the right hip is 0.781 g/cm? with a T-score of -1.3. FRAX 10-year fracture risk: Major Osteoporotic Fracture: 11% Hip Fracture: 2.0% Procedure Note Jose Alejandro Ramires MD - 01/09/2024 [facility] [address] [place] [address] EXAMINATION: BONE DENSITY/DEXA INDICATIONS: Postmenopausal TECHNIQUE: DEXA bone mineral density evaluation was performed in the APprojection over the lumbar spine and both hips utilizing standard imagingtechniques. ASSESSMENT: The BMD measured at the AP spine L1-L4 is 0.908 g/cm? with a T-score of-1.3. The BMD measured at the left femoral neck is 0.639 g/cm? with a T-score of-1.9. The BMD measured at the left hip is 0.736 g/cm? with a T-score of -1.7. The BMD measured at the right femoral neck is 0.671 g/cm? with a T-scoreof -1.6. The BMD measured at the right hip is 0.781 g/cm? with a T-score of -1.3. FRAX 10-year fracture risk: Major Osteoporotic Fracture: 11% Hip Fracture: 2.0% IMPRESSION: WHO Classification: Osteopenia RECOMMENDATIONS: All patients should ensure an adequate intake of dietary calcium andvitamin D. The NOF recommend adults under the age of 50 need 1000 mg ofcalcium and 400-800 IU of vitamin D daily. Effective therapy for theprevention and treatment of osteoporosis include bisphosphonates. Follow-up: People with diagnosed cases of osteoporosis or at high risk for fractureshould have regular bone mineral density test. For patients eligible forMedicare, routine testing is allowed once every 2 years. Testing frequencycan be increased to one year for patients who have rapidly progressingdisease, those who are receiving or discontinuing medical therapy torestore bone mass, or have additional risk factors. Referred By: JYOTSNA PHAM Interpreted By: Jose Alejandro Ramires MD, 01/09/2024 3:58 AM Jyotsna Pham MD DEXA Final Resul t from Last 3 Months or Most Recently Relevant to Health Maintenance Insurance MEDICARE MEDICAID Advance Directives Documents on File Type Date Recorded Patient Multiple Games Dealer Expl anation Advance Directives and Living Will 01/14/2020 11:46 AM 04/04/2017 POA Care Teams Educational Therapist Relationship Specialty Start Date End Date Mellisa Polo, SEPARATIONS SCIENTIST-BC [address] [facility] [place] [address] PCP - General Nurse Practitioner Family 01/08/24
--- NOTE | 2024-10-29 12:15 | NEURO_ITS ---
Clinical note: The patient is 69-year-old with complaints paresthesias in both lower limbs. No history of diabetes mellitus. On brief examination no focal muscle wasting or fasciculations are seen in the lower limbs. Summary of findings: 1. Left and right peroneal and tibial motor distal latencies, amplitudes and conduction velocities were within normal limits. 2. Right sural sensory was absent. Left sural sensory distal latency and amplitudes were within normal limits. Left and right medial plantar sensory distal latencies normal however amplitudes were mildly decreased. 3. H reflex latency was mildly prolonged on the left than right however amplitudes are significantly decreased on both sides. 4. EMG examination performed and various muscles were examined in both lower limbs including related paraspinal and gluteal muscles. No denervation changes were seen. Motor unit amplitude and duration and conduction velocity within acceptable normal limits. 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 Etiologic correlation is recommended. At this time there is no supportive evidence for L3-S1 radiculopathy.. Ludmila Parry MD, FAAN, FAANEM Neurology / electrodiagnostic Medicine Nerve Conduction Studies Motor Nerve Results ? Latency Amplitude F-Lat Segment Distance CV Comment Site (ms) (mV) (ms) (cm) (m/s) Left Peroneal (EDB) Motor Ankle 5.5 4.6 Bel Fib Head 11.2 4.8 Bel Fib Head-Ankle 270 47 Pop Fossa 12.9 4.9 Pop Fossa-Bel Fib Head 80 47 Right Peroneal (EDB) Motor Ankle 4.2 5.8 Bel Fib Head 10.1 4.6 Bel Fib Head-Ankle 255 43 Pop Fossa 11.6 4.3 Pop Fossa-Bel Fib Head 85 57 Left Tibial (AHB) Motor Ankle 5.0 9.9 Knee 13.7 7.9 Knee-Ankle 395 45 Right Tibial (AHB) Motor Ankle 3.7 6.3 Knee 13.0 6.5 Knee-Ankle 390 42 Sensory Nerve Results ? Latency (Peak) Amplitude (P-P) Segment Distance CV Comment Site (ms) (?V) (cm) (m/s) Left Medial Plantar (Ortho) Sensory Great Toe-Med Mall 3.3 6 Great Toe-Med Mall 90 27 Right Medial Plantar (Ortho) Sensory Great Toe-Med Mall 3.0 5 Great Toe-Med Mall 95 32 Left Sural Sensory Calf-Lat Mall 3.8 10 Calf-Lat Mall 120 32 Right Sural Sensory Calf-Lat Mall NR NR Calf-Lat Mall 120 NR H-Reflex Results ? M-Lat H Lat H Peak-Peak Amp M Peak-Peak Amp H-M Lat Site (ms) (ms) mV mV (ms) Left Tibial H-Reflex Pop Fossa - 35.4 0.96 - - Right Tibial H-Reflex Pop Fossa - 32.8 0.15 - - Electromyography ?Side Muscle Nerve Ins Act Fibs Psw Amp Dur Recrt Comment Right BicepsFemS Sciatic Nml Nml Nml Nml Nml Nml Right Semimembranosus Sciatic Nml Nml Nml Nml Nml Nml Right AntTibialis Dp Br Fibular Nml Nml Nml Nml Nml Nml Right Gastroc Tibial Nml Nml Nml Nml Nml Nml Right VastusMed Femoral Nml Nml Nml Nml Nml Nml Right RectFemoris Femoral Nml Nml Nml Nml Nml Nml Right GluteusMax InfGluteal Nml Nml Nml Nml Nml Nml Right TensorFascLat SupGluteal Nml Nml Nml Nml Nml Nml Left BicepsFemS Sciatic Nml Nml Nml Nml Nml Nml Left Semimembranosus Sciatic Nml Nml Nml Nml Nml Nml Left AntTibialis Dp Br Fibular Nml Nml Nml Nml Nml Nml Left Gastroc Tibial Nml Nml Nml Nml Nml Nml Left VastusMed Femoral Nml Nml Nml Nml Nml Nml Left RectFemoris Femoral Nml Nml Nml Nml Nml Nml Left GluteusMax InfGluteal Nml Nml Nml Nml Nml Nml Left TensorFascLat SupGluteal Nml Nml Nml Nml Nml Nml Left L4 Parasp Rami Nml Nml Nml Nml Nml Nml Left L5 Parasp Rami Nml Nml Nml Nml Nml Nml Right L4 Parasp Rami Nml Nml Nml Nml Nml Nml Right L5 Parasp Rami Nml Nml Nml Nml Nml Nml
== END 2024-10-29 09:50 | disposition home or self-care (01) ==
LOC: ANHNEURO 09:51
PROVIDERS: PCP Nurse Practitioner Family; Visit Provider Psychiatry & Neurology Neurology
DX: E11.9 Type 2 diabetes mellitus without complications (principal); R53.1 Weakness
CPT/HCPCS: 95886; 95910

== ENCOUNTER 2024-12-29 08:45 | Outpatient (CLI) | payer MEDICARE, MEDICAID, SELFPAY ==
--- NOTE | ~2024-12-29 | US_ITS ---
Clinical History: R26.81 - Unsteadiness on feet Examination: US carotid duplex BI Comparison: None Technique: Grayscale, color, duplex/spectral Doppler sonography carotid and vertebral arteries. Distal CCA and Peak ICA systolic velocities provided. Society of Radiologists in Ultrasound (SRU) consensus criteria utilized, indirectly assessing stenosis by velocities. Findings: Mild plaque. Right side: CCA - 85 cm/sec. ICA - 93 cm/sec. ICA/CCA - 1.1 Left Side: CCA - 90 cm/sec. ICA - 114 cm/sec. ICA/CCA - 1.3 Normal antegrade flow measured bilateral vertebral arteries. IMPRESSION: 1. No hemodynamically significant ICA stenosis (i.e., if any stenosis, less than 50%). 2. Normal bilateral antegrade vertebral artery flow. Stenosis measured by Society of Radiologists in Ultrasound (SRU) criteria. Reviewed, dictated and finalized at location R. IMPRESSION: 1. No hemodynamically significant ICA stenosis (i.e., if any stenosis, less th an 50%). 2. Normal bilateral antegrade vertebral artery flow. Stenosis measured by Society of Radiologists in Ultrasound (SRU) criteria.
--- OUTSIDE RECORDS SUMMARY | 2024-12-29 09:01 | XMS_ITS | Clinical Summary ---
Author Organization [facility] Address [address] [place] [address] Care Team Providers Care Real Estate Clerk Name Role Phone Mellisa Polo [facility] Primary Care Provider + Allergies [...] (08/13/2022): Added automatically from request for surgery [id number] Imbalance 12/25/2021 Edema of both lower legs due to peripheral venous insufficiency 01/08/2018 Onychomycosis of toenail 01/03/2018 Resolved Problems Problem Noted Date Diagnosed Date Resolved Date Encounter for preventive health examination 12/26/2017 12/04/2019 Immunizations Immunization Administration Dates Next Due MODERNA [...] Sex Assigned at Female 04/18/2018 8:41 AM DRUM STENCILER Legal Sex Female 8:02 PM CDT Gender Identity Female 04/18/2018 8:41 AM DRUM STENCILER Sexual Orientation Straight 04/18/2018 8: 41 AM DRUM STENCILER Last Filed Vital Signs Vital Sign Reading [...] C 06/12/1973 Annual Medicare Wellness Visit 2018 PHQ-2 (Physician [place]) 03/25/2024 COVID-19 Vaccine (3 - season) 2024 07/12/2020, 06/14/2020 Influenza Adult (#1) 2024 11/25/2018, 12/06/2016, 12/15/2015, Additional history exists Pneumococcal Vaccine: 50+ Years (3 of 3 [...] Ordered By: MELLISA POLO Interpreted By: Madina oBurne, 07/31/2024 12:35 PM Narrative 07/31/2024 12:40 [place] [address] EXAMINATION: Digital bilateral screening mammogram with 3-D [...] either breast to suggest malignancy. us Mellisa Polo GRANTS ANALYST-BC MAMMO Final Re sult * BONE DENSITY/DEXA [...] 3:58 AM Narrative 01/09/2024 3:58 AM CDT [facility] [address] [place] [address] EXAMINATION: BONE DENSITY/DEXA INDICATIONS: Postmenopausal TECHNIQUE: DEXA [...] Note Jose Alejandro Ramires MD - 01/09/2024 [facility] [address] [place] [address] EXAMINATION: BONE DENSITY/DEXA INDICATIONS: Postmenopausal TECHNIQUE: DEXA [...] Most Recently Relevant to Health Maintenance Insurance MEDICAID Advance Directives Documents on File Type Date Recorded Patient Avionics Engineer Expl anation Advance Directives and Living Will 01/14/2020 11:46 AM 04/04/2017 POA Care Teams Real Estate Clerk Relationship Specialty Start Date End Date Mellisa Polo, GRANTS ANALYST- [address] [facility] [place] [address] PCP - General Nurse Practitioner Family 01/08/24
--- OUTSIDE RECORDS SUMMARY | 2024-12-29 09:01 | XMS_ITS | Clinical Summary ---
Author Organization [facility] Address [address] [facility] [place] [address] Care Team Providers Care Bathing Suit Maker Name Role Phone Alex Leon MD Primary Care Provider [phone] Source Comments [facility],non-owned Affiliates and Associated Physician Practices is amultiple site organization consisting of ambulatory clinics and hospital sitesin [place], [place], [place] and [place]. This disclosure is being madepursuant to the Care Everywhere program and may not contain all information available regarding this patient. Last updated 17.[facility] Allergies No known active allergies Medications * [...] - PCV) 06/12/2003 SCREENING FOR DIABETES 08/20/2019 DEPRESSION SCREENING 03/25/2024 COVID-19 VACCINE (1 - 2023-2 5 season) 2024 INFLUENZA VACCINE (#1) 2024 11/25/2018 Respiratory Syncytial [...] STATE MEDICARE MEDICAID - [place] Care Teams Bathing Suit Maker Relationship Specialty Start Date End Date Alex Leon MD [address] [place] [address] [address] [place] [address] PCP - General 08/13/19
--- OUTSIDE RECORDS SUMMARY | 2024-12-29 09:02 | XMS_ITS | Encounter Summary ---
Author Organization [facility] Address [facility] [place] [address] Care Team Providers Care Branch Director Name Role Phone Alex Leon MD Primary Care Provider Unava Radha Suh DO Primary Care Provider [phone] Zac Salcido MD Primary Care Provider [phone] Aleksandra Forbes [facility] Primary Care Provider + Encounter Details Date Type Department Care Team (Late st Contact Info) Description 10/15/2019 Prep for Procedure [facility] [address] [place], [place] [id number] Chip Busby MD [address] [place] [address] [phone] Social History Tobacco Use Types Packs/Day Years [...] Sex Assigned at Female 04/18/2018 8:41 AM LINEWORKER Legal Sex Female 8:02 PM CDT Gender Identity Female 04/18/2018 8:41 AM LINEWORKER Sexual Orientation Straight 04/18/2018 8: 41 AM LINEWORKER COVID-19 Exposure Response Date Recorded In the [...] DETECTED NOT DETECTED 10/19/2019 7:18 PM CDT [facility] Comment: A Not Detected (negative) test result [...] providers and patients using the following websites: https://www.[employer]/home/Covid-19/HCP/NAAT/fact-sheet2 https://www.[employer]/home/Covid-19/Patients/NAAT/ fact-sheet2 This test has been authorized by the FDA under an Emergency Use Authorization (EUA) for use by authorized laboratories. Due to the current public health emergency, [facility] is receiving a high volume of samples [...] about COVID-19 can be found at the [facility] website: www.[employer]/Covid19. Test performed at [facility] [address] [id number] Director: DIANA BRICE DO,MPH NASOPHARYNGEAL SWAB / Unknown 10/18/2019 9:37 AM CDT us Chip Busby MD MICROBIOLOGY - GENERAL ORDERABLE S Final Result [facility] [address] [place] [address], documented in this encounter Visit Diagnoses Diagnosis Preop testing- Primary Preoperative examination, unspecified documented in this encounter Additional Health Concerns Infection Onset Date Last Indicated Resolved Time COVID-19 Rule Out 10/18/2019 10/18/2019 10/19/2019 7:19 PM CDT documented as of this encounter Care Teams Branch Director Relationship Specialty Start Date End Date Alex Leon MD PCP - General INTERNAL MEDICINE 01/07/18 04/04/21 Radha Leonard DO PCP - General FAMILY PRACTICE 04/05/21 08/09/22 Zac Salcido MD [address] [place] [address] PCP - General FAMILY PRACTICE 08/10/22 01/07/24 Aleksandra Forbes, MEDICAL DATA ANALYST- [address] [place] [address] PCP - General Nurse Practitioner Family 01/08/24 documented as of this encounter
[2024-12-29 10:19] LABS: Creatine Kinase 61 U/L (30-135)
[2024-12-29 11:23] LABS: Glucose 1 Hour 174 mg/dL
[2024-12-29 12:30] LABS: Glucose 2 Hour 148 mg/dL
[2024-12-30 12:08] LABS: C-Reactive Protein, Cardiac 0.64 mg/L (0.00-3.00)
[2024-12-30 18:07] LABS: ANA by IFA Rfx Titer/Pattern Positive (.)
== END 2024-12-29 08:46 | disposition home or self-care (01) ==
PROVIDERS: PCP Nurse Practitioner Family; Visit Provider Psychiatry & Neurology Neurology
DX: G62.9 Polyneuropathy, unspecified (principal); R26.81 Unsteadiness on feet
CPT/HCPCS: 36415; 82550; 82951; 84207; 86038; 86141; 86430; 93880

== ENCOUNTER 2024-12-30 08:07 | Outpatient (CLI) | payer MEDICARE, MEDICAID, SELFPAY ==
--- NOTE | ~2024-12-30 | MR_ITS ---
EXAMINATION: MR cervical spine wo con DATE: 12/30/2024 09:44 INDICATION: Ataxia, unspecified. TECHNIQUE: Magnetic resonance imaging (MRI) of the cervical spine was performed without intravenous contrast. COMPARISON: None FINDINGS: There is 2 mm anterolisthesis of C4 on C5. Vertebral body heights are normal. There is severely decreased disc height at C5-C6, C6-C7, and C7-T1. The spinal cord signal intensity is normal. The following disc levels are specifically discussed: C2-C3: The disc does not extend beyond the endplate margin. There is no uncovertebral joint osteoarthritis. There is severe bilateral facet joint osteoarthritis. There is mild bilateral neural foraminal stenosis. There is no central canal stenosis. C3-C4: There is a central extrusion. There is mild bilateral uncovertebral joint osteoarthritis. There is severe right and moderate left facet joint osteoarthritis. There is mild bilateral neural foraminal stenosis. There is mild central canal stenosis. C4-C5: There is a right central protrusion. There is mild bilateral uncovertebral joint osteoarthritis. There is severe right and mild left facet joint osteoarthritis. There is mild bilateral neural foraminal stenosis. There is mild central canal stenosis. C5-C6: The disc is bulging. There is severe bilateral uncovertebral joint osteoarthritis. There is mild bilateral facet joint osteoarthritis. There is moderate bilateral neural foraminal stenosis. There is moderate central canal stenosis. C6-C7: The disc is bulging. There is severe bilateral uncovertebral joint osteoarthritis. There is mild bilateral facet joint osteoarthritis. There is mild right and moderate left neural foraminal stenosis. There is mild central canal stenosis. C7-T1: The disc is bulging. There is moderate bilateral uncovertebral joint osteoarthritis. There is severe bilateral facet joint osteoarthritis. There is mild bilateral neural foraminal stenosis. There is mild central canal stenosis. IMPRESSION: 1. Severe cervical spondylosis. Reviewed, dictated and finalized at location E.
--- NOTE | ~2024-12-30 | MR_ITS ---
EXAMINATION: MR lumbar spine wo con DATE: 12/30/2024 09:46 INDICATION: Ataxia, unspecified. TECHNIQUE: Magnetic resonance imaging (MRI) of the lumbar spine was performed without intravenous contrast. Sequences included sagittal T2-weighted FSE, sagittal T2-weighted FS FSE, sagittal T1-weighted FSE, and axial T2-weighted FSE. COMPARISON: None FINDINGS: There is 11 degrees levoscoliosis of lumbar spine. There is 4 mm retrolisthesis of L1 on L2 and 6 mm retrolisthesis of L2 on L3. There is a chronic compression fracture of T11. There are chronic burst fractures of T12, L1, and L2. There is mildly decreased disc height at L2-L3, L3-L4, and L5-S1. The distal spinal cord signal intensity is normal. The conus medullaris is at L1. The following disc levels are specifically discussed: L1-L2: The disc is bulging. There is moderate right and mild left facet joint osteoarthritis. There is mild bilateral neural foraminal stenosis. There is mild central canal stenosis. L2-L3: The disc is bulging and has an annular fissure. There is severe right and mild left facet joint osteoarthritis. There is moderate right and mild left neural foraminal stenosis. There is mild central canal stenosis. L3-L4: The disc is bulging and has an annular fissure. There is moderate bilateral facet joint osteoarthritis. There is moderate bilateral neural foraminal stenosis. There is mild central canal stenosis. L4-L5: The disc is bulging. There is severe bilateral facet joint osteoarthritis. There is mild right and moderate left neural foraminal stenosis. There is mild central canal stenosis. L5-S1: The disc is bulging and has an annular fissure. There is severe bilateral facet joint osteoarthritis. There is mild right and moderate left neural foraminal stenosis. There is mild central canal stenosis. IMPRESSION: 1. Moderate lumbar spondylosis. 2. Lumbar levoscoliosis. Reviewed, dictated and finalized at location E.
--- NOTE | ~2024-12-30 | MR_ITS ---
EXAMINATION: MR thoracic spine wo con DATE: 12/30/2024 09:44 INDICATION: Ataxia, unspecified. TECHNIQUE: Magnetic resonance imaging (MRI) of the thoracic spine was performed without intravenous contrast. COMPARISON: None FINDINGS: Alignment is normal. There are Schmorl's nodes at multiple levels. There are chronic fractures of T10, T11, T12, L1, and L2 vertebral bodies. Intervertebral disc heights are normal in thoracic spine. At T1-T2 and T2-T3, there are central protrusions with mild central canal stenosis. At T7-T8, there is a right central extrusion with mild central canal stenosis. There is multilevel facet joint osteoarthritis, severe in lower thoracic spine. There is mild right neural foraminal stenosis at T1-T2 and T9-T10. There is mild left neural foraminal stenosis at T11-T12. The spinal cord signal intensity is normal. The conus medullaris is at L1. IMPRESSION: 1. Mild thoracic spondylosis. Reviewed, dictated and finalized at location E.
== END 2024-12-30 08:08 | disposition home or self-care (01) ==
LOC: MICIMG 08:12
PROVIDERS: PCP Nurse Practitioner Family; Visit Provider Psychiatry & Neurology Neurology
DX: M47.814 Spondylosis without myelopathy or radiculopathy, thoracic region (principal); M47.816 Spondylosis without myelopathy or radiculopathy, lumbar region; M41.86 Other forms of scoliosis, lumbar region; M47.812 Spondylosis without myelopathy or radiculopathy, cervical region; R27.0 Ataxia, unspecified; G62.9 Polyneuropathy, unspecified; G30.0 Alzheimer's disease with early onset; F02.B4 Dementia in other diseases classified elsewhere, moderate, with anxiety
CPT/HCPCS: 72141; 72146; 72148

== ENCOUNTER 2024-12-30 10:45 | Outpatient (CLI) | payer MEDICARE, MEDICAID, SELFPAY ==
--- NOTE | 2024-12-29 14:37 | ECHO_ITS ---
Patient Info Name: Katelynn Donaldson Age: 69 years : 1955 Gender: Female Ht: 63 in Wt: 143 lbs BSA: 1.71 m2 HR: 58 bpm BP: 137 / 72 mmHg Heart Rhythm: Sinus Rhythm Technical Quality: Good Exam Date: 12/29/2024 2:50 PM Patient Status: O Admit Date: 12/30/2024 Exam Type: CA echo doppler w bubble study Complete two-dimensional, color flow and Doppler transthoracic echocardiogram is performed with agitated saline. Check Services Clerk: Greta Gage Attending Provider: Ludmila Parry Summary 1. Left ventricular chamber dimension is normal. 2. Left ventricular systolic function is normal, estimated at 65-70. 3. The left ventricular diastolic function is grade I diastolic dysfunction. 4. E/e' 10 is mildly elevated. 5. Left atrial chamber dimension is mildly enlarged. 6. There is mild aortic valve sclerosis. 7. There is trace aortic valve regurgitation. 8. No pulmonary hypertension, estimated pulmonary arterial systolic pressure is 21 mmHg. Left Ventricle E/e' 10 is mildly elevated. Left ventricular chamber dimension is normal. Left ventricular systolic function is normal, estimated at 65-70. The left ventricular diastolic function is grade I diastolic dysfunction. Right Ventricle Right ventricular chamber dimension is normal. Right ventricular systolic function is normal and with normal TAPSE 2.1 cm. Left Atria Left atrial chamber dimension is mildly enlarged. Right Atria Right atrial chamber dimension is normal. Atrial Septum Intact interatrial septum visualized by 2D and agitated saline imaging. Agitated saline injection with and without valsalva maneuver opacified right side cardiac chambers without shunt to left side cardiac chambers. Aortic Valve The aortic valve is trileaflet. There is mild aortic valve sclerosis. There is no aortic valve stenosis. There is trace aortic valve regurgitation. Pulmonic Valve There is no pulmonic regurgitation. Mitral Valve There is no mitral valve stenosis. There is no mitral valve regurgitation. Tricuspid Valve There is no tricuspid valve regurgitation. No pulmonary hypertension, estimated pulmonary arterial systolic pressure is 21 mmHg. Pericardium/Pleural There is no pericardial effusion. Inferior Vena Cava Normal inferior vena cava with >50% collapse upon inspiration consistent with normal right atrial pressure, 5 mmHg. Aorta The aortic root size at the sinus of Valsalva is normal. Left Ventricular Outflow Tract Name Value Normal LVOT 2D LVOT Diameter 2.0 cm LVOT Doppler LVOT Peak Velocity 139 cm/s LVOT Peak Gradient 8 mmHg LVOT Mean Gradient 3 mmHg LVOT VTI 28 cm LVOT VTI/AV VTI Ratio 0.8 LVOT Stroke Volume 85 ml LVOT CO 4.7 l/min LVOT CI 2.8 l/min/m2 Pulmonic Valve Name Value Normal RVOT Doppler RVOT Peak Velocity 90 cm/s RVOT Peak Gradient 3 mmHg PV Doppler PV Peak Velocity 119 cm/s PV Peak Gradient 6 mmHg Mitral Valve Name Value Normal MV Diastolic Function MV E Peak Velocity 91 cm/s MV A Peak Velocity 106 cm/s MV E/A 0.9 MV Decel Time (PW) 249 ms MV Annular TDI MV E/e' (Septal) 11.6 MV E/e' (Lateral) 9.6 MV E/e' (Average) 10.6 Tricuspid Valve Name Value Normal TV Regurgitation Doppler TR Peak Velocity 202 cm/s TR Peak Gradient 16 mmHg Estimated PAP/RSVP RA Pressure 5 mmHg <=5 PA Systolic Pressure 21 mmHg <36 RV Systolic Pressure 21 mmHg <36 TV Annular TDI TV Lateral Angela s' Velocity 11.9 cm/s >=9.5 Aorta Name Value Normal Ascending Aorta Ao Root Diameter (MM) 2.5 cm Ao Root Diam Index (MM) 1.4 cm/m2 Aortic Valve Name Value Normal AV Doppler AV Peak Velocity 155 cm/s AV Peak Gradient 10 mmHg AV Mean Gradient 5 mmHg AV VTI 36 cm AV Area (Cont Eq VTI) 2.4 cm2 >=3.0 AV Area (Cont Eq Aidan) 2.7 cm2 AV DI (Aidan) 0.90 AV Regurgitation 2D LVOT Area 3.0 cm2 Ventricles Name Value Normal LV Dimensions 2D/MM IVS Diastolic Thickness (2D) 0.9 cm 0.6-1.0 LVID Diastole (2D) 3.8 cm 3.8-5.2 LVIW Diastolic Thickness (2D) 0.8 cm 0.6-0.9 LVID Systole (2D) 2.2 cm 2.2-3.5 LVOT Diameter 2.0 cm LV Mass (2D Cubed) 92.53 g 67.00-162.00 LV Mass Index (2D Cubed) 54 g/m2 43-95 Relative Wall Thickness (2D) 0.45 <=0.42 LV Fractional Shortening/Ejection Fraction 2D/MM LV Fractional Shortening (2D) 40 % 27-45 LV EF (2D Teichholz) 72 % LV Diastolic Volume (4C MOD) 49 ml LV EF (4C MOD) 75 % LV Diastolic Volume (2C MOD) 44 ml LV EF (2C MOD) 72 % LV Diastolic Volume (BP MOD) 47 ml 46-106 LV Diastolic Volume Index (BP MOD) 28 ml/m2 29-61 LV Systolic Volume (BP MOD) 13 ml 14-42 LV Systolic Volume Index (BP MOD) 7 ml/m2 8-24 LV EF (BP MOD) 73 % 54-74 LV Diastolic Length (4C) 7.2 cm LV Systolic Length (4C) 5.8 cm LV Stroke Volume (4C MOD) 37 ml Atria Name Value Normal LA Dimensions LA Dimension (MM) 4.2 cm 2.7-3.8 LA Volume (4C A-L) 37 ml LA Volume (BP A-L) 39 ml RA Dimensions RA Area (4C) 11.9 cm2 <=18.0 Report Signatures Amended by Emmanuel Amador DO on 12/31/2024 10:42 AM
--- NOTE | 2025-01-13 12:11 | WPDHOLTEREM ---
Holter/Event Monitor Holter/Event Monitor Date of procedure: 12/30/24 Holter/Event Procedure: 3-7 Day Holter Monitor Indications: Repeated falls Conclusion: 1. 7 days holter monitor on 12/30/24. 2. Predominant rhythm is sinus rhythm. HR range 50-174 bpm; average HR 69 bpm. 3. There are rare premature supraventricular complexes, rare supraventricular couplets, and rare supraventricular triplets. There are 11 episodes of supraventricular tachycardia with fastest at 146 bpm and longest lasting 11.5 seconds. 4. There are rare premature ventricular complexes. There is 1 episode of ventricular tachycardia at 174 bpm lasting 4 beats. 5. No significant pauses greater than 3 seconds. 6. No symptoms available for correlation.
== END 2024-12-30 10:46 | disposition home or self-care (01) ==
LOC: ANHCARD 10:47
PROVIDERS: PCP Nurse Practitioner Family; Visit Provider Psychiatry & Neurology Neurology
DX: R93.1 Abnormal findings on diagnostic imaging of heart and coronary circulation (principal); I35.8 Other nonrheumatic aortic valve disorders; G62.9 Polyneuropathy, unspecified; R27.0 Ataxia, unspecified; G30.0 Alzheimer's disease with early onset; F02.B4 Dementia in other diseases classified elsewhere, moderate, with anxiety; R29.6 Repeated falls
CPT/HCPCS: 93242; 93306; 96375